=== PATIENT | male | born 1975 | race African-American/Black ===

== ENCOUNTER 2016-09-25 09:30 | Emergency (ER) | payer OTHER ==
--- NOTE | ~2016-09-25 | CR169 ---
[facility] A Service of [facility] [place] RADIOLOGY TEXT RESULTS PATIENT: CHRISTY LANDIS LOCATION: CFTX : 71 UNIT #: [id number] AGE: [address]: Aren Lyn SEX: M ORDER DR: [id number] [facility] [address] [place], [place] [address] [id number] MR#: [id number] Acc #: [id number] NAME: CHRISTY LANDIS. : 1975 SEX: M STUDY DATE/TIME: 09/25/2016 9:40 UNIT: [facility] ROOM: STUDY DESCRIPTION: CR Knee 2 Views Lt Attending Physician: Aren Lyn Ordering Physician: Ed Doctor [id number] [facility] Primary Care Physician: Primary Care Physician No MEDICAL IMAGING REPORT This report is preliminary unless electronic signature is present EXAM Left knee HISTORY Left knee pain since yesterday. The patient heard a pop yesterday. Cannot bear weight. FINDINGS An AP crosstable lateral view of the left knee were obtained. I believe there is a moderate joint effusion. The bones are normal. There is no fracture. IMPRESSION Moderate joint effusion otherwise normal. Dictated by... Severiano Gonzalez M.D. THIS IS AN ELECTRONICALLY VERIFIED REPORT Severiano Gonzalez M.D. at 09/25/2016 4:04 PM Aaron TD: 09/25/2016 10:49 JOB #: [id number] MEDICAL IMAGING REPORT Page 1 of 1 COPY
[~2016-09-25 09:30] MED LIST: ALB/IPRATROPIUM/1 EA INH; ALBUTEROL17 GM INH; DARVOCET-N 1001 TAB PO; DOXYCYCLINE PO; MEDROL4 MG/DOSE- PO; PREDNISONE PO; PRILOSEC PO; ULTRAM PO; ZITHROMAX1 G/PKT PO
== END 2016-09-25 10:36 | disposition home or self-care (01) ==
LOC: CFTX 09:30
DX: M25.462 Effusion, left knee (principal); I10 Essential (primary) hypertension; Z90.49 Acquired absence of other specified parts of digestive tract; F17.210 Nicotine dependence, cigarettes, uncomplicated
CPT/HCPCS: 29505; 73560; 99283